=== PATIENT | female | born 2000 | race Caucasian/White ===

== ENCOUNTER 2020-02-24 06:50 | Inpatient (IN) ==
[~2020-02-24 06:50] MED LIST: *HR* FentaNYL (PF) 100 MCG/2 ML VIAL IVP PRN; Famotidine 20 MG/2 ML VIAL IVP PRN; Lidocaine 1% 20 ML MDV INFILT PRN; Metoclopramide 10 MG/2 ML VIAL IVP PRN; Naloxone 0.4 MG/ML INJ IVP PRN; Ondansetron 4 MG/2 ML VIAL IVP PRN; Penicillin G Potassium 5,000,000 UNIT in 0.9 % Sodium Chloride Mini Bag 100 ML IVPB ONE
[2020-02-24] MEDS: Ringers Solution, Lactated 1,000 ML IVC SCH ×2 (06:53→10:58)
[2020-02-24 07:18] LABS: Basophils % 0.2 %; Eosinophils % 0.2 %; Hematocrit 31.6 % (35.3-44.9); Hemoglobin 10.4 g/dL (11.5-15.4); Immature Granulocytes % 0.3 % (0-4); Lymphocytes # 1.7 K/mcL (0.6-4.6); Lymphocytes % 19.6 %; Mean Corpuscular HGB Conc 32.9 g/dL (31.6-35.5); Mean Corpuscular Hemoglobin 29.1 pg (28.0-33.3); Mean Corpuscular Volume 88.5 fL (83.0-100.0); Mean Platelet Volume 10.7 fL (9.4-12.4); Monocytes # 0.5 K/mcL (0.0-1.3); Monocytes % 5.8 %; Neutrophils # 6.5 K/mcL (1.6-8.9); Platelet Count 217 K/mcL (140-400); Red Blood Count 3.57 M/mcL (3.82-4.97); Red Cell Distribution Width 14.5 % (11.5-14.5); Segmented Neutrophils % 73.9 %; White Blood Count 8.8 K/mcL (4.3-11.1)
[2020-02-24 07:23] LABS: Hepatitis B Surface Antigen Nonreactive (Nonreactive)
[2020-02-24 07:52] LABS: HIV-1&2 Antibody & p24 Ag Nonreactive (Nonreactive)
[2020-02-24 08:34] LABS: Amphetamine Screen,Urine Negative ng/mL (Cutoff=1000); Barbiturate Screen,Urine Negative ng/mL (Cutoff=200); Benzodiazepines Screen,Urine Negative ng/mL (Cutoff=200); Cannabinoid Screen,Urine Negative ng/mL (Cutoff = 50); Cocaine Screen,Urine Negative ng/mL (Cutoff= 300); Opiate Screen,Urine Negative ng/mL (Cutoff=300); Phencyclidine Screen,Urine Negative ng/mL (Cutoff=25)
[2020-02-24 09:34] LABS: Varicella Zoster IgG Antibody Negative
[2020-02-24 09:36] LABS: Rubella IgG Antibody POSITIVE (POSITIVE)
[2020-02-24] MEDS ORDERED: EPHEDrine 50 MG/ML VIAL IVP PRN (10:10)
[2020-02-24] MEDS ORDERED: Epidural Premix (fent/bupiv) 110 ML EP SCH (10:15)
[2020-02-24] MEDS ORDERED: Oxytocin 20 units/ LR 1000 mL 20 UNIT/1,000 ML BAG IVC ONE (11:04)
[2020-02-24] MEDS ORDERED: Penicillin G Potassium 2,500,000 UNIT in 0.9 % Sodium Chloride 100 ML IVPB SCH (12:00)
[2020-02-24] MEDS ORDERED: Oxytocin 20 units/ LR 1000 mL 20 UNIT/1,000 ML BAG IVC SCH (18:35)
[2020-02-24] MEDS ORDERED: Rho Immune Globulin 1,500 UNIT SYRINGE IM PRN (18:35)
[2020-02-24] MEDS ORDERED: Acetaminophen 325 MG TABLET PO PRN (18:35)
[2020-02-24] MEDS ORDERED: Measles/Mumps/Rubella Vacc 0.5 ML VIAL SQ PRN (18:35)
[2020-02-24] MEDS ORDERED: Benzocaine/Menthol 56 GM AEROSOL SPRAY TP PRN (18:35)
[2020-02-25] MEDS: Ibuprofen 600 MG TABLET PO PRN ×3 (02:11→16:22)
[2020-02-25 04:25] LABS: Basophils % 0.1 %; Eosinophils % 0.5 %; Hematocrit 29.4 % (35.3-44.9); Hemoglobin 9.6 g/dL (11.5-15.4); Immature Granulocytes % 0.2 % (0-4); Lymphocytes # 1.7 K/mcL (0.6-4.6); Lymphocytes % 20.4 %; Mean Corpuscular HGB Conc 32.7 g/dL (31.6-35.5); Mean Corpuscular Hemoglobin 29.1 pg (28.0-33.3); Mean Corpuscular Volume 89.1 fL (83.0-100.0); Mean Platelet Volume 10.7 fL (9.4-12.4); Monocytes # 0.7 K/mcL (0.0-1.3); Monocytes % 8.1 %; Platelet Count 185 K/mcL (140-400); Red Cell Distribution Width 14.4 % (11.5-14.5); Segmented Neutrophils % 70.7 %; White Blood Count 8.5 K/mcL (4.3-11.1)
[2020-02-25 07:56] VITALS: BP 124/80
[2020-02-25] MEDS ORDERED: Prenatal Vit/FA 1 EACH TABLET PO SCH (09:00)
== END 2020-02-25 18:10 | disposition home or self-care (01) | DRG 807 ==
LOC: 1NENULAB → 1NENUOBS 18:12
PROVIDERS: ADMIT Obstetrics & Gynecology; ATTEND Obstetrics & Gynecology